=== PATIENT | male | born 1940 | race Caucasian/White ===

== ENCOUNTER 2023-10-29 15:06 | Emergency (ER) | payer MEDICARE, OTHER ==
[~2023-10-29] VITALS: Ht 175.3 cm; Wt 86.4 kg
[2023-10-29 15:16] VITALS: BP 162/100; PULSE 82; RESP 18; O2SAT 97
[2023-10-29 15:22] LABS: BASOPHILS # (AUTO) 0.1 X10'3 (0-0.2); BASOPHILS % (AUTO) 1.1 % (0-1); EOSINOPHILS # (AUTO) 0.2 X10'3 (0-0.9); EOSINOPHILS % (AUTO) 2.6 % (0-6); HEMATOCRIT 40.2 % (42.0-52.0); HEMOGLOBIN 13.2 g/dl (14.0-17.9); LYMPHOCYTES % (AUTO) 30.7 % (21-51); MEAN CORPUSCULAR HEMOGLOBIN 31.1 PG (27.0-31.0); MEAN CORPUSCULAR HGB CONC 32.7 g/dL (33.0-36.5); MEAN CORPUSCULAR VOLUME 94.8 FL (78-98); MEAN PLATELET VOLUME 8.1 FL (7.4-10.4); MONOCYTES # (AUTO) 0.7 X10'3 (0-0.9); MONOCYTES % (AUTO) 10.1 % (2-12); NEUTROPHILS # (AUTO) 3.6 X10'3 (1.8-7.7); NEUTROPHILS % (AUTO) 55.5 % (42-75); PLATELET COUNT 216 X10'3 (140-440); RED BLOOD COUNT 4.24 X10'6 (4.70-6.10); RED CELL DISTRIBUTION WIDTH 15.3 % (11.5-14.5); WHITE BLOOD COUNT 6.5 X10'3 (4.5-11.0)
[2023-10-29 15:54] LABS: ALANINE AMINOTRANSFERASE 19 U/L (12-78); ALBUMIN 3.6 G/DL (3.4-5.0); ALBUMIN/GLOBULIN RATIO 0.9 (1.1-1.5); ALKALINE PHOSPHATASE 55 IU/L (46-116); ANION GAP 8 (8-16); ASPARTATE AMINO TRANSFERASE 22 U/L (10-37); BILIRUBIN,TOTAL 0.5 MG/DL (0.1-1.0); BLOOD UREA NITROGEN 28 MG/DL (7-18); BUN/CREATININE RATIO 14.8 (10.0-20.0); CALCIUM 8.7 MG/DL (8.5-10.1); CHLORIDE 106 MMOL/L (99-107); CREATININE 1.89 MG/DL (0.60-1.10); GLUCOSE 86 MG/DL (70-104); POTASSIUM 4.3 MMOL/L (3.5-5.1); PRO BRAIN NATRIURETIC PEPTIDE 5255 PG/ML (0-450); SODIUM 142 MMOL/L (135-145); TOTAL CARBON DIOXIDE 27.9 MMOL/L (24-32); TOTAL PROTEIN 7.6 G/DL (6.4-8.2); eCRCL 29 ML/MIN; eGFR 34 ML/MIN
== END 2023-10-29 19:18 | disposition left against medical advice (07) ==
LOC: ER 15:07
DX: R06.02 Shortness of breath (principal); R07.89 Other chest pain; Z53.21 Procedure and treatment not carried out due to patient leaving prior to being seen by health care provider
CPT/HCPCS: 36415; 71045; 80053; 83880; 84484; 85025; 93005; 99281

== ENCOUNTER 2024-07-01 07:06 | Day surgery (SDC) | payer MEDICARE, OTHER ==
[2024-06-30 16:05] LABS: BASOPHILS % (AUTO) 0.8 % (0-1); EOSINOPHILS # (AUTO) 0.2 X10'3 (0-0.9); EOSINOPHILS % (AUTO) 2.4 % (0-6); HEMATOCRIT 40.3 % (42.0-52.0); HEMOGLOBIN 12.9 g/dl (14.0-17.9); LYMPHOCYTES # (AUTO) 1.8 X10'3 (1.1-4.8); MEAN CORPUSCULAR HEMOGLOBIN 31.5 PG (27.0-31.0); MEAN CORPUSCULAR HGB CONC 32.1 g/dL (33.0-36.5); MEAN PLATELET VOLUME 7.8 FL (7.4-10.4); MONOCYTES # (AUTO) 0.6 X10'3 (0-0.9); MONOCYTES % (AUTO) 8.8 % (2-12); NEUTROPHILS # (AUTO) 3.7 X10'3 (1.8-7.7); PLATELET COUNT 204 X10'3 (140-440); RED BLOOD COUNT 4.11 X10'6 (4.70-6.10); RED CELL DISTRIBUTION WIDTH 15.1 % (11.5-14.5); WHITE BLOOD COUNT 6.3 X10'3 (4.5-11.0)
[2024-06-30 16:13] LABS: INR 1.1 INR; PROTHROMBIN TIME 11.5 SECONDS (9.0-12.0)
[2024-06-30 16:33] LABS: ALBUMIN 3.8 G/DL (3.4-5.0); ANION GAP 9 (8-16); BLOOD UREA NITROGEN 26 MG/DL (7-18); BUN/CREATININE RATIO 11.5 (10.0-20.0); CHLORIDE 108 MMOL/L (99-107); CREATININE 2.26 MG/DL (0.60-1.10); GLUCOSE 114 MG/DL (70-104); POTASSIUM 4.5 MMOL/L (3.5-5.1); SODIUM 143 MMOL/L (135-145); TOTAL CARBON DIOXIDE 26.4 MMOL/L (24-32); eGFR 28 ML/MIN
[2024-07-01] VITALS (17 sets, daily range): BP systolic 123–158; BP diastolic 76–103; PULSE 65–89; RESP 15–22; TEMP 97.9; O2SAT 90–99
[~2024-07-01] VITALS: Ht 172.7 cm; Wt 85.3 kg
[2024-07-01] MEDS ORDERED: amiodarone 150mg/dext, iso-os 100 ML IV ONE (08:00)
[2024-07-01] MEDS ORDERED: diphenhydrAMINE 25mg capsule PO ONE (08:00)
[2024-07-01] MEDS ORDERED: LORazepam 0.5 MG tablet PO ONE (08:00)
[2024-07-01] MEDS ORDERED: atropine 0.1mg/ml 10ml syringe IV ONE (08:00)
[2024-07-01] MEDS ORDERED: AMI200T PO (08:32)
[2024-07-01] MEDS ORDERED: ASPI81TA52 PO (08:33)
[2024-07-01] MEDS ORDERED: APIX2.5T PO (08:33)
[2024-07-01] MEDS ORDERED: CLOP75TA34 PO (08:34)
[2024-07-01] MEDS ORDERED: ISOS60TA71 PO (08:35)
[2024-07-01] MEDS ORDERED: LOSA-418 PO (08:36)
[2024-07-01] MEDS ORDERED: METO-384 PO (08:37)
[2024-07-01] MEDS ORDERED: ROSU40TA89 PO (08:37)
[2024-07-01] MEDS ORDERED: METF-436 PO (08:39)
[2024-07-01] MEDS ORDERED: GLIP5TAB23 PO (08:40)
[2024-07-01] MEDS ORDERED: FINA5TAB11 PO (08:40)
[2024-07-01] MEDS ORDERED: PANT40TA54 PO (08:41)
[2024-07-01] MEDS ORDERED: ERGO400C PO (08:42)
[2024-07-01] MEDS ORDERED: VITE400C PO (08:43)
[2024-07-01] MEDS ORDERED: VITC500T PO (08:43)
[2024-07-01] MEDS: MIDAZolam 1mg/ml 10ml vial IV ONE (08:59)
[2024-07-01] MEDS: normal saline 1000ml 1,000 ML IV SCH (08:59)
[2024-07-01] MEDS: morphine 10mg/ml inj. IV ONE (08:59)
[2024-07-01] MEDS: enoxaparin 40mg/0.4ml syringe SUBCUT ONE (10:00)
== END 2024-07-01 10:49 | disposition home or self-care (01) ==
LOC: SSTAY O 07:06
PROVIDERS: ATTEND Internal Medicine Cardiovascular Disease
DX: I48.19 Other persistent atrial fibrillation (principal); I44.7 Left bundle-branch block, unspecified; R94.31 Abnormal electrocardiogram [ECG] [EKG]; I48.92 Unspecified atrial flutter; I13.0 Hypertensive heart and chronic kidney disease with heart failure and stage 1 through stage 4 chronic kidney disease, or unspecified chronic kidney disease; E11.22 Type 2 diabetes mellitus with diabetic chronic kidney disease; N18.30 Chronic kidney disease, stage 3 unspecified; I50.20 Unspecified systolic (congestive) heart failure; I25.10 Atherosclerotic heart disease of native coronary artery without angina pectoris; E78.5 Hyperlipidemia, unspecified; I25.2 Old myocardial infarction; Z79.01 Long term (current) use of anticoagulants; Z79.02 Long term (current) use of antithrombotics/antiplatelets; Z79.84 Long term (current) use of oral hypoglycemic drugs; Z79.899 Other long term (current) drug therapy; Z95.0 Presence of cardiac pacemaker; Z95.1 Presence of aortocoronary bypass graft; Z98.41 Cataract extraction status, right eye; Z98.42 Cataract extraction status, left eye; Z98.890 Other specified postprocedural states
CPT/HCPCS: 36415; 80048; 82948; 85025; 85610; 92960; 93005; J1650; J2250; J2270; J7030; A4620; J2274

== ENCOUNTER 2024-07-10 10:05 | Inpatient (IN) | payer MEDICARE, OTHER ==
[~2024-07-10] VITALS: Ht 174 cm; Wt 80.0 kg
[~2024-07-10 10:05] MED LIST: AMI200T PO; APIX2.5T PO; ASPI81TA52 PO; CLOP75TA34 PO; ERGO400C PO; FINA5TAB11 PO; FURO-150 PO; GLIP5TAB23 PO; ISOS60TA71 PO; LOSA-418 PO; METF-436 PO; METO-384 PO; PANT40TA54 PO; ROSU40TA89 PO; SPIR25TA PO; VITC500T PO; VITE400C PO
[2024-07-10] MEDS ORDERED: LIDOcaine 1% 30ml preserv. free vial ONE (10:13)
[2024-07-10] MEDS ORDERED: midazolam 1 mg/ML 2ml injection ONE (10:13)
[2024-07-10] MEDS ORDERED: heparin 1,000 UNITS/NS 500ml 0 ML ONE (10:13)
[2024-07-10] MEDS ORDERED: heparin 1,000unit/ml 10ml vial 0 ML ONE (10:13)
[2024-07-10] MEDS ORDERED: verapamil 2.5 mg/ml inj IV ONE (10:13)
[2024-07-10] MEDS ORDERED: fentaNYL/PF 50MCG/1 ML 2ML syringe ONE (10:13)
[2024-07-10] MEDS ORDERED: iohexol 350MG/ML 100ml bottle IV ONE (10:13)
[2024-07-10 10:24] LABS: BASOPHILS % (AUTO) 0.1 % (0-1); EOSINOPHILS % (AUTO) 0 % (0-6); HEMATOCRIT 32.4 % (42.0-52.0); HEMOGLOBIN 10.4 g/dl (14.0-17.9); LYMPHOCYTES # (AUTO) 1.2 X10'3 (1.1-4.8); LYMPHOCYTES % (AUTO) 12.7 % (21-51); MEAN CORPUSCULAR HEMOGLOBIN 32.1 PG (27.0-31.0); MEAN CORPUSCULAR HGB CONC 32.1 g/dL (33.0-36.5); MEAN CORPUSCULAR VOLUME 99.8 FL (78-98); MEAN PLATELET VOLUME 8.9 FL (7.4-10.4); MONOCYTES # (AUTO) 0.7 X10'3 (0-0.9); MONOCYTES % (AUTO) 7.2 % (2-12); NEUTROPHILS # (AUTO) 7.6 X10'3 (1.8-7.7); PLATELET COUNT 194 X10'3 (140-440); RED BLOOD COUNT 3.24 X10'6 (4.70-6.10); RED CELL DISTRIBUTION WIDTH 15.5 % (11.5-14.5); WHITE BLOOD COUNT 9.5 X10'3 (4.5-11.0)
[2024-07-10 10:36] LABS: ALBUMIN 3.6 G/DL (3.4-5.0); ALKALINE PHOSPHATASE 116 IU/L (46-116); ANION GAP 20 (8-16); ASPARTATE AMINO TRANSFERASE 860 U/L (10-37); BILIRUBIN,TOTAL 2.3 MG/DL (0.1-1.0); BLOOD UREA NITROGEN 65 MG/DL (7-18); BUN/CREATININE RATIO 15.9 (10.0-20.0); CALCIUM 9.4 MG/DL (8.5-10.1); CHLORIDE 100 MMOL/L (99-107); CREATININE 4.08 MG/DL (0.60-1.10); GLUCOSE 158 MG/DL (70-104); POTASSIUM 5.2 MMOL/L (3.5-5.1); SODIUM 140 MMOL/L (135-145); TOTAL CARBON DIOXIDE 19.6 MMOL/L (24-32); TOTAL PROTEIN 7.3 G/DL (6.4-8.2); eCRCL 13 ML/MIN; eGFR 14 ML/MIN
[2024-07-10 10:51] LABS: PRO BRAIN NATRIURETIC PEPTIDE > 30000 PG/ML (0-450)
[2024-07-10 11:01] LABS: ALANINE AMINOTRANSFERASE 867 U/L (12-78)
[2024-07-10] MEDS ORDERED: magnesium sulf-water 4G/100mL 100 ML IV PRN (11:45)
[2024-07-10] MEDS ORDERED: magnesium hydroxide 30ml (MOM) UD suspension PO PRN (11:45)
[2024-07-10] MEDS ORDERED: potassium Cl 40MEQ/1/2NS 520ml 520 ML IV PRN (11:45)
[2024-07-10] MEDS ORDERED: magnesium sulf-water 2g/50mL 50 ML IV PRN (11:45)
[2024-07-10] MEDS ORDERED: potassium Cl 20 mEq SR tablet PO PRN ×2 (11:45)
[2024-07-10] MEDS ORDERED: morphine 2 MG/ML inj. syringe IV PRN ×2 (11:45)
[2024-07-10] MEDS ORDERED: magnesium Cl slow-release 64mg tablet PO PRN (11:45)
[2024-07-10] MEDS ORDERED: acetaminophen 325mg tablet PO PRN (11:45)
[2024-07-10] MEDS ORDERED: ondansetron/PF 4mg/2ml inj IV PRN (11:45)
[2024-07-10] MEDS ORDERED: furosemide 40mg/4ml inj IV SCH (12:00)
[2024-07-10] MEDS ORDERED: ipratropium/albuterol 3ml nebule NEB PRN (12:05)
[2024-07-10 12:23] LABS: MAGNESIUM 2.9 MG/DL (1.5-2.4)
[2024-07-10] MEDS: clopidogrel 75mg tablet PO SCH (12:36)
[2024-07-10] MEDS: metoprolol succinate 25mg (24-HOUR) SR. Tablet PO SCH (12:37)
[2024-07-10] MEDS: amiodarone 200mg tablet PO SCH (12:37)
[2024-07-10] MEDS: apixaban 2.5mg tablet PO SCH (12:38)
[2024-07-10] MEDS: aspirin 81mg, enteric-coated 1 TAB TABLET.DR PO SCH (12:38)
[2024-07-10] MEDS: atorvastatin 20mg tablet PO SCH (12:38)
[2024-07-10] MEDS: furosemide 40mg/4ml inj IV SCH ×2 (12:42→19:38)
[2024-07-10] MEDS: FLU VACC TS2024-25(6MOS UP)/PF 45 MCG/0.5 ML SYRINGE IMVAC ONE (14:25)
[2024-07-10] MEDS: spironolactone 25 MG tablet PO SCH (15:01)
[2024-07-10] MEDS: DOBUTamine-DoBUTrex 500mg/D5W 250 ML IV SCH ×2 (15:02→17:25)
[2024-07-10] MEDS ORDERED: heparin, porcine 5000 units/ml vial SQ SCH (16:00)
[2024-07-10 18:00] VITALS: PULSE 80; RESP 20; O2SAT 96
[2024-07-10] MEDS: K and/or MAG REPLACEMENT MC SCH (18:41)
[2024-07-10] MEDS: docusate sod 100mg capsule PO SCH (19:37)
[2024-07-10 23:33] VITALS: PULSE 82; RESP 16; O2SAT 97
[2024-07-11] VITALS (19 sets, daily range): BP systolic 105–119; BP diastolic 45–84; PULSE 80–107; RESP 15–23; TEMP 97–97.8; O2SAT 95–99
[2024-07-11 08:45] LABS: MAGNESIUM 2.8 MG/DL (1.5-2.4); POTASSIUM 3.9 MMOL/L (3.5-5.1)
[2024-07-11 09:01] LABS: BASOPHILS % (AUTO) 0.4 % (0-1); EOSINOPHILS % (AUTO) 0.6 % (0-6); HEMATOCRIT 30.4 % (42.0-52.0); LYMPHOCYTES # (AUTO) 0.7 X10'3 (1.1-4.8); LYMPHOCYTES % (AUTO) 12.3 % (21-51); MEAN CORPUSCULAR HEMOGLOBIN 32.1 PG (27.0-31.0); MEAN CORPUSCULAR HGB CONC 32.9 g/dL (33.0-36.5); MEAN CORPUSCULAR VOLUME 97.5 FL (78-98); MEAN PLATELET VOLUME 8.3 FL (7.4-10.4); MONOCYTES # (AUTO) 0.3 X10'3 (0-0.9); MONOCYTES % (AUTO) 5.8 % (2-12); NEUTROPHILS # (AUTO) 4.7 X10'3 (1.8-7.7); NEUTROPHILS % (AUTO) 80.9 % (42-75); PLATELET COUNT 154 X10'3 (140-440); RED BLOOD COUNT 3.11 X10'6 (4.70-6.10); RED CELL DISTRIBUTION WIDTH 14.9 % (11.5-14.5); WHITE BLOOD COUNT 5.9 X10'3 (4.5-11.0)
[2024-07-11 09:16] LABS: ALANINE AMINOTRANSFERASE 871 U/L (12-78); ALBUMIN 3.5 G/DL (3.4-5.0); ALKALINE PHOSPHATASE 108 IU/L (46-116); ANION GAP 13 (8-16); ASPARTATE AMINO TRANSFERASE 601 U/L (10-37); BILIRUBIN,TOTAL 1.3 MG/DL (0.1-1.0); BLOOD UREA NITROGEN 74 MG/DL (7-18); BUN/CREATININE RATIO 19.8 (10.0-20.0); CALCIUM 8.6 MG/DL (8.5-10.1); CHLORIDE 99 MMOL/L (99-107); CREATININE 3.73 MG/DL (0.60-1.10); GLUCOSE 111 MG/DL (70-104); SODIUM 140 MMOL/L (135-145); TOTAL CARBON DIOXIDE 27.9 MMOL/L (24-32); TOTAL PROTEIN 6.9 G/DL (6.4-8.2); eCRCL 14 ML/MIN; eGFR 16 ML/MIN
[2024-07-11] MEDS: salt irrigation nasal spray 45 ML SPRAY NS PRN (14:45)
[2024-07-12] VITALS (11 sets, daily range): BP systolic 102–132; BP diastolic 49–66; PULSE 80–83; RESP 14–22; TEMP 97–98.6; O2SAT 96–98
[2024-07-12 06:10] LABS: BASOPHILS % (AUTO) 0.9 % (0-1); EOSINOPHILS # (AUTO) 0.1 X10'3 (0-0.9); EOSINOPHILS % (AUTO) 1.8 % (0-6); HEMATOCRIT 32.7 % (42.0-52.0); LYMPHOCYTES # (AUTO) 0.7 X10'3 (1.1-4.8); LYMPHOCYTES % (AUTO) 14.4 % (21-51); MEAN CORPUSCULAR HEMOGLOBIN 32.3 PG (27.0-31.0); MEAN CORPUSCULAR HGB CONC 33.6 g/dL (33.0-36.5); MEAN CORPUSCULAR VOLUME 96.2 FL (78-98); MEAN PLATELET VOLUME 8.1 FL (7.4-10.4); MONOCYTES # (AUTO) 0.3 X10'3 (0-0.9); MONOCYTES % (AUTO) 6.6 % (2-12); NEUTROPHILS # (AUTO) 3.9 X10'3 (1.8-7.7); NEUTROPHILS % (AUTO) 76.3 % (42-75); PLATELET COUNT 202 X10'3 (140-440); RED CELL DISTRIBUTION WIDTH 15.3 % (11.5-14.5); WHITE BLOOD COUNT 5.1 X10'3 (4.5-11.0)
[2024-07-12 06:23] LABS: ALANINE AMINOTRANSFERASE 952 U/L (12-78); ALBUMIN 3.5 G/DL (3.4-5.0); ALBUMIN/GLOBULIN RATIO 0.9 (1.1-1.5); ALKALINE PHOSPHATASE 115 IU/L (46-116); ANION GAP 12 (8-16); ASPARTATE AMINO TRANSFERASE 540 U/L (10-37); BILIRUBIN,TOTAL 1.4 MG/DL (0.1-1.0); BLOOD UREA NITROGEN 68 MG/DL (7-18); CALCIUM 8.8 MG/DL (8.5-10.1); CHLORIDE 96 MMOL/L (99-107); GLUCOSE 113 MG/DL (70-104); MAGNESIUM 2.7 MG/DL (1.5-2.4); POTASSIUM 3.5 MMOL/L (3.5-5.1); PRO BRAIN NATRIURETIC PEPTIDE 19461 PG/ML (0-450); SODIUM 138 MMOL/L (135-145); TOTAL CARBON DIOXIDE 30.3 MMOL/L (24-32); TOTAL PROTEIN 7.2 G/DL (6.4-8.2); eCRCL 16 ML/MIN; eGFR 17 ML/MIN
[2024-07-12] MEDS: EMPAGLIFLOZIN 10 MG TABLET PO SCH (08:47)
[2024-07-12] MEDS: mag hydrox/Alum hydrox/simeth 30ml oral suspension PO PRN (14:01)
[2024-07-13] VITALS (7 sets, daily range): BP systolic 105–140; BP diastolic 57–71; PULSE 79–87; RESP 16–20; TEMP 97.5–97.7; O2SAT 94–99
[2024-07-13 07:22] LABS: BASOPHILS % (AUTO) 0.7 % (0-1); EOSINOPHILS # (AUTO) 0.1 X10'3 (0-0.9); EOSINOPHILS % (AUTO) 1.9 % (0-6); HEMATOCRIT 36.1 % (42.0-52.0); LYMPHOCYTES # (AUTO) 0.8 X10'3 (1.1-4.8); LYMPHOCYTES % (AUTO) 14.2 % (21-51); MEAN CORPUSCULAR HEMOGLOBIN 32.2 PG (27.0-31.0); MEAN CORPUSCULAR HGB CONC 33.4 g/dL (33.0-36.5); MEAN CORPUSCULAR VOLUME 96.4 FL (78-98); MEAN PLATELET VOLUME 8.2 FL (7.4-10.4); MONOCYTES # (AUTO) 0.6 X10'3 (0-0.9); MONOCYTES % (AUTO) 9.8 % (2-12); NEUTROPHILS # (AUTO) 4.1 X10'3 (1.8-7.7); NEUTROPHILS % (AUTO) 73.4 % (42-75); PLATELET COUNT 248 X10'3 (140-440); RED BLOOD COUNT 3.74 X10'6 (4.70-6.10); RED CELL DISTRIBUTION WIDTH 15.1 % (11.5-14.5); WHITE BLOOD COUNT 5.6 X10'3 (4.5-11.0)
[2024-07-13 07:59] LABS: ALANINE AMINOTRANSFERASE 787 U/L (12-78); ALBUMIN 3.5 G/DL (3.4-5.0); ALBUMIN/GLOBULIN RATIO 0.9 (1.1-1.5); ALKALINE PHOSPHATASE 112 IU/L (46-116); ANION GAP 12 (8-16); ASPARTATE AMINO TRANSFERASE 300 U/L (10-37); BILIRUBIN,TOTAL 1.3 MG/DL (0.1-1.0); BLOOD UREA NITROGEN 62 MG/DL (7-18); BUN/CREATININE RATIO 19.9 (10.0-20.0); CALCIUM 8.8 MG/DL (8.5-10.1); CHLORIDE 94 MMOL/L (99-107); CREATININE 3.12 MG/DL (0.60-1.10); GLUCOSE 160 MG/DL (70-104); MAGNESIUM 2.7 MG/DL (1.5-2.4); POTASSIUM 3.6 MMOL/L (3.5-5.1); SODIUM 136 MMOL/L (135-145); TOTAL CARBON DIOXIDE 30.4 MMOL/L (24-32); TOTAL PROTEIN 7.5 G/DL (6.4-8.2); eCRCL 17 ML/MIN; eGFR 19 ML/MIN
[2024-07-13] MEDS ORDERED: METO-395 PO (10:19)
[2024-07-13] MEDS ORDERED: ATOR20TA66 PO (10:19)
== END 2024-07-13 15:03 | DRG 280 ==
LOC: ER 10:06 → ED HOLD 11:51 → PCU 3S 22:15
PROVIDERS: ADMIT Nurse Practitioner Family; ATTEND Nurse Practitioner Family
DX: I13.0 Hypertensive heart and chronic kidney disease with heart failure and stage 1 through stage 4 chronic kidney disease, or unspecified chronic kidney disease (principal); I50.23 Acute on chronic systolic (congestive) heart failure; I21.4 Non-ST elevation (NSTEMI) myocardial infarction; N17.9 Acute kidney failure, unspecified; I25.10 Atherosclerotic heart disease of native coronary artery without angina pectoris; I48.0 Paroxysmal atrial fibrillation; E87.5 Hyperkalemia; I49.5 Sick sinus syndrome; R74.01 Elevation of levels of liver transaminase levels; E78.5 Hyperlipidemia, unspecified; E11.22 Type 2 diabetes mellitus with diabetic chronic kidney disease; N18.9 Chronic kidney disease, unspecified; I25.5 Ischemic cardiomyopathy; Z79.01 Long term (current) use of anticoagulants; Z79.02 Long term (current) use of antithrombotics/antiplatelets; Z79.84 Long term (current) use of oral hypoglycemic drugs; Z79.899 Other long term (current) drug therapy; Z95.0 Presence of cardiac pacemaker; Z95.1 Presence of aortocoronary bypass graft; Z95.5 Presence of coronary angioplasty implant and graft; Z79.82 Long term (current) use of aspirin
CPT/HCPCS: 36415; 71045; 80053; 82948; 83735; 83880; 84132; 84484; 85025; 87081; 90686; 93005; 94760; 97161; 97530; 99285; A6213; G0378; J1250; J1644; J1940; J2003; J2250; J3010; J3490; J7030; Q9967